=== PATIENT | female | born 1950 | race African-American/Black ===

== ENCOUNTER 2017-09-30 09:55 | Inpatient (IN) | payer MEDICARE, MEDICAID ==
[~2017-09-30] VITALS: Ht 162.6 cm; Wt 72.6 kg
[2017-09-30] MEDS ORDERED: SODIUM CHLORIDE 0.9% 1,000 ML IV ONE ×3 (10:10→11:15)
[2017-09-30] MEDS ORDERED: METHYLPREDNISOLONE SOD SUCC 125 MG/2 ML VIAL IV STA (10:10)
[2017-09-30] MEDS ORDERED: IPRATROPIUM/ALBUTEROL 0.5-3(2.5)MG/3ML NEB HHN ONE (10:15)
[2017-09-30 10:59] LABS: BASOPHILS % 0.9 % (0.0-2.0); EOSINOPHILS % 1.5 % (0.0-5.0); HEMATOCRIT. 42.8 % (36.0-48.0); HEMOGLOBIN. 14.7 g/dL (12.0-16.0); LYMPHOCYTES % 21.3 % (20.0-50.0); MEAN CORPUSCULAR HEMOGLOBIN 30.3 pg (28.0-32.0); MEAN CORPUSCULAR VOLUME 88.1 fL (81.0-99.0); MEAN PLATELET VOLUME 8.7 fl (7.4-10.4); MONOCYTES % 7.1 % (2.0-8.0); NEUTROPHILS % 69.2 % (40.0-76.0); PLATELET 197 x1000/uL (130-400); RED BLOOD CELL COUNT 4.86 mill/uL (4.2-5.4); RED CELL DISTRIBUTION WIDTH 13.4 % (11.6-14.6)
[2017-09-30 11:10] LABS: INR 1.1; PARTIAL THROMBOPLASTIN TIME 30.2 sec (23.4-31.0); PROTHROMBIN TIME 11.4 sec (9.4-11.6)
[2017-09-30 11:12] LABS: CARBON DIOXIDE 19 mEq/L (21-32); CHLORIDE 101 mEq/L (98-107); TROPONIN I < 0.02 ng/mL (0.00-0.04)
[2017-09-30] MEDS ORDERED: PIPERACILLIN/TAZ 3.375G PREMIX 50 ML IV ONE (11:15)
[2017-09-30] MEDS ORDERED: VANCOMYCIN 1 G PREMIX 200 ML IV ONE (11:15)
[2017-09-30 12:47] LABS: CLARITY URINE CLEAR (CLEAR); COLOR URINE YELLOW (YELLOW); GLUCOSE URINE NEGATIVE (NEGATIVE); KETONES URINE NEGATIVE (NEGATIVE); NITRITE URINE NEGATIVE (NEGATIVE); OCCULT BLOOD URINE NEGATIVE (NEGATIVE); PROTEIN URINE 1+ (NEGATIVE); SPECIFIC GRAVITY URINE 1.018 (1.005-1.030); UROBILINOGEN URINE 0.2 E.U./dL (0.2-1.0)
[2017-09-30 12:48] LABS: LEUKOCYTE ESTERASE URINE NEGATIVE (NEGATIVE)
[2017-09-30 14:44] VITALS: BP 114/54
[2017-09-30 14:51] VITALS: BP 105/53
[2017-09-30] MEDS ORDERED: AMLO5TAB4 PO (15:02)
[2017-09-30] MEDS ORDERED: PRED5TAB48 PO (15:02)
[2017-09-30] MEDS ORDERED: LEVO100T9 PO (15:02)
[2017-09-30 16:00] VITALS: BP 115/62
[2017-09-30] MEDS ORDERED: SODIUM CHLORIDE 0.9% 1,000 ML IV SCH (17:00)
[2017-09-30] MEDS ORDERED: DOCUSATE SODIUM 250MG CAPSULE PO PRN ×2 (17:00→18:00)
[2017-09-30] MEDS ORDERED: POTASSIUM CHLORIDE 20MEQ TABLET SR PO NR ×2 (18:00→19:00)
[2017-09-30] MEDS ORDERED: PIPERACILLIN/TAZOBACTAM 3.375GM/50ML PREMIX IV SCH (18:00)
[2017-09-30 20:00] VITALS: BP 119/65
[2017-09-30] MEDS: PIPERACILLIN/TAZ 2.25G PREMIX 50 ML IV SCH (20:51)
[2017-09-30] MEDS: SODIUM CHLORIDE 0.9% 1,000 ML IV SCH (20:52)
[2017-09-30] MEDS: POLYETHYLENE GLYCOL 3350 (17GM) 1 DOSE PACK PO SCH (20:53)
[2017-09-30 22:00] VITALS: BP 118/64
[2017-10-01] VITALS (12 sets, daily range): BP systolic 107–155; BP diastolic 57–80
[2017-10-01] MEDS: PIPERACILLIN/TAZ 2.25G PREMIX 50 ML IV SCH ×3 (02:02→17:19)
[2017-10-01] MEDS: SODIUM CHLORIDE 0.9% 1,000 ML IV SCH ×3 (04:00→18:25)
[2017-10-01] MEDS: LEVOTHYROXINE SODIUM 100MCG TABLET PO SCH (05:58)
[2017-10-01 07:33] LABS: CORTISOL 17.7 ucg/dL
[2017-10-01 07:34] LABS: TRIOIODOTHYRONINE TOTAL 0.39 ng/ml (0.60-1.81)
[2017-10-01 07:39] LABS: T4 FREE 0.87 ng/dL (0.76-1.46)
[2017-10-01] MEDS ORDERED: DIATR MEGLU/DIATRIZOATE SOLN 30ML PO SCH (07:45)
[2017-10-01] MEDS: POLYETHYLENE GLYCOL 3350 (17GM) 1 DOSE PACK PO SCH ×2 (08:09→17:00)
[2017-10-01] MEDS: PREDNISONE 5MG TABLET PO SCH (08:49)
[2017-10-01 09:17] LABS: CREATINE KINASE 351 IU/L (26-192)
[2017-10-01] MEDS ORDERED: DIATR MEGLU/DIATRIZOATE SOLN 30ML ONE (14:47)
[2017-10-01 17:37] LABS: HEMATOCRIT. 36.2 % (36.0-48.0); HEMOGLOBIN. 12.3 g/dL (12.0-16.0); MEAN CORPUSCULAR HEMOGLOBIN 29.6 pg (28.0-32.0); MEAN CORPUSCULAR VOLUME 86.9 fL (81.0-99.0); MEAN PLATELET VOLUME 9.4 fl (7.4-10.4); PLATELET 157 x1000/uL (130-400); RED BLOOD CELL COUNT 4.17 mill/uL (4.2-5.4)
[2017-10-01 22:07] LABS: PLATELET ESTIMATE NORMAL
[2017-10-02] VITALS (12 sets, daily range): BP systolic 129–159; BP diastolic 58–102
[2017-10-02] MEDS: SODIUM CHLORIDE 0.9% 1,000 ML IV SCH ×2 (01:11→08:14)
[2017-10-02] MEDS: PIPERACILLIN/TAZ 2.25G PREMIX 50 ML IV SCH ×2 (01:11→10:50)
[2017-10-02] MEDS: LEVOTHYROXINE SODIUM 100MCG TABLET PO SCH (06:32)
[2017-10-02] MEDS: POLYETHYLENE GLYCOL 3350 (17GM) 1 DOSE PACK PO SCH ×2 (08:13→16:29)
[2017-10-02] MEDS: PREDNISONE 5MG TABLET PO SCH (08:14)
[2017-10-02 11:09] LABS: BASOPHILS % 0.2 % (0.0-2.0); HEMOGLOBIN. 11.9 g/dL (12.0-16.0); LYMPHOCYTES % 7.8 % (20.0-50.0); MEAN CORPUSCULAR HEMOGLOBIN 29.7 pg (28.0-32.0); MEAN CORPUSCULAR VOLUME 87.2 fL (81.0-99.0); MEAN PLATELET VOLUME 8.9 fl (7.4-10.4); MONOCYTES % 3.1 % (2.0-8.0); NEUTROPHILS % 88.9 % (40.0-76.0); PLATELET 157 x1000/uL (130-400); RED BLOOD CELL COUNT 4.01 mill/uL (4.2-5.4); RED CELL DISTRIBUTION WIDTH 13.8 % (11.6-14.6)
[2017-10-02 11:12] LABS: CHLORIDE 119 mEq/L (98-107)
[2017-10-02 11:18] LABS: CARBON DIOXIDE 25 mEq/L (21-32)
[2017-10-02 13:11] LABS: ANTI-NUCLEAR ANTIBODIES DIRECT Negative (Negative)
[2017-10-02] MEDS: PIPERACILLIN/TAZ 3.375G PREMIX 50 ML IV SCH (18:50)
[2017-10-02] MEDS: SODIUM CHLORIDE 0.45% 1,000 ML IV SCH (20:43)
[2017-10-03] VITALS (10 sets, daily range): BP systolic 119–169; BP diastolic 75–87
[2017-10-03] MEDS: PIPERACILLIN/TAZ 3.375G PREMIX 50 ML IV SCH ×2 (01:27→10:20)
[2017-10-03 05:20] LABS: COMPLEMENT C3 116 mg/dL (82-167)
[2017-10-03] MEDS: SODIUM CHLORIDE 0.45% 1,000 ML IV SCH ×2 (06:13→13:52)
[2017-10-03] MEDS: LEVOTHYROXINE SODIUM 100MCG TABLET PO SCH (06:13)
[2017-10-03 06:28] LABS: BASOPHILS % 0.6 % (0.0-2.0); EOSINOPHILS % 0.2 % (0.0-5.0); HEMATOCRIT. 36.6 % (36.0-48.0); HEMOGLOBIN. 12.5 g/dL (12.0-16.0); LYMPHOCYTES % 17.7 % (20.0-50.0); MEAN CORPUSCULAR HEMOGLOBIN 29.7 pg (28.0-32.0); MEAN CORPUSCULAR VOLUME 86.9 fL (81.0-99.0); MEAN PLATELET VOLUME 9.4 fl (7.4-10.4); MONOCYTES % 4.1 % (2.0-8.0); NEUTROPHILS % 77.4 % (40.0-76.0); PLATELET 156 x1000/uL (130-400); RED BLOOD CELL COUNT 4.21 mill/uL (4.2-5.4); RED CELL DISTRIBUTION WIDTH 13.7 % (11.6-14.6)
[2017-10-03 06:42] LABS: CARBON DIOXIDE 25 mEq/L (21-32); CHLORIDE 110 mEq/L (98-107)
[2017-10-03] MEDS ORDERED: POTASSIUM CHLORIDE 20MEQ TABLET SR PO NR (07:00)
[2017-10-03] MEDS: PREDNISONE 5MG TABLET PO SCH (08:00)
[2017-10-03] MEDS: POLYETHYLENE GLYCOL 3350 (17GM) 1 DOSE PACK PO SCH ×2 (08:00→16:04)
[2017-10-03] MEDS ORDERED: PIPERACILLIN/TAZ 3.375G PREMIX 50 ML IV SCH (18:00)
== END 2017-10-03 17:06 | disposition home or self-care (01) | DRG 871 ==
LOC: ER 09:59 → EDBEDREQSVC 11:54 → EDBEDREQ 11:54 → ENRESERV 12:44 → 3WST 13:22
PROVIDERS: ADMIT Internal Medicine; ATTEND Internal Medicine
DX: A41.9 Sepsis, unspecified organism (principal); N17.0 Acute kidney failure with tubular necrosis; I95.9 Hypotension, unspecified; E87.1 Hypo-osmolality and hyponatremia; E23.0 Hypopituitarism; N18.5 Chronic kidney disease, stage 5; I12.0 Hypertensive chronic kidney disease with stage 5 chronic kidney disease or end stage renal disease; E27.40 Unspecified adrenocortical insufficiency; N39.0 Urinary tract infection, site not specified; E03.9 Hypothyroidism, unspecified; E87.6 Hypokalemia; K52.9 Noninfective gastroenteritis and colitis, unspecified; Z90.710 Acquired absence of both cervix and uterus; Z87.440 Personal history of urinary (tract) infections; Z88.6 Allergy status to analgesic agent
CPT/HCPCS: 36415; 71010; 74176; 80048; 80053; 81001; 82533; 82550; 83605; 83880; 84145; 84439; 84443; 84480; 84484; 85025; 85610; 85730; 86038; 86160; 87040; 87086; 87804; 93005; 93970; 94640; 96365; 96367; 96375; 99291; J2543; J2930; J3370; J7030; J7512; J7620; Q9963